=== PATIENT | male | born 1950 | race Caucasian/White ===

== ENCOUNTER 2016-06-20 19:28 | Emergency (ER) | payer OTHER ==
[2016-06-20 19:55] VITALS: TEMP 97.7
--- NOTE | 2016-06-20 20:43 | EDPHY ---
H & P Time Seen by Provider: 06/20/16 20:25 HPI/ROS: HPI Left shoulder injury. 66-year-old male by private vehicle. He reports that he was reaching and extending his left arm to get something off a shelf when he felt a sudden pop in his left shoulder. He complains of isolated pain to the left lateral shoulder. Denies history of fall or other acute traumatic event. ROS: Constitutional: No fever, no chills. No weakness. Musculoskeletal: No back pain. No neck pain. As above. Skin: No lacerations or abrasions. Neurological: No focal weakness or altered sensation. Past medical history: Right rotator cuff repair, insomnia, liver tumor ablation. Social history: Here by himself. Physical Exam: General Appearance: Alert, no distress. This patient is responding to questions appropriately and in full sentences. This patient appears well- hydrated and well-nourished. Eyes: Pupils equal and round no pallor or injection. No lid edema, erythema or injection. Left shoulder exam: He describes pain over the anterior lateral mid lateral and posterior lateral aspect of the shoulder. The axillary nerve distribution is intact. No tenderness on palpation over the AC joint. The glenoid humeral joint anatomically appears intact and without subluxation or dislocation. He is able to abduct and adduct the arm as well as flex and extend the arm. He has discomfort to the before mentioned areas with ranging. The left upper extremity is neurovascularly intact. There is noted soft tissue swelling, erythema or edema. No ecchymosis. Neurological: Motor sensory function is grossly intact. Cranial nerves are normal. Gait is normal. Skin: Warm and dry, no rashes. Musculoskeletal: Neck is supple and nontender. Extremities are symmetrical. All joints range without pain or impingement except noted. Psychiatric: No agitation. No depression. Database: EKG: Imaging: Left shoulder x-ray series: Negative for glenohumeral joint subluxation dislocation. No obvious fracture. Radiologist interpretation is a grade 2 AC joint sprain. However, the patient does not have any tenderness on palpation over the AC joint. Therefore this is unlikely an acute injury. Procedures: Emergency department course: Preliminary results of x-rays and probable diagnosis of shoulder sprain versus rotator cuff injury discussed with the patient. 9:45 p.m., Patient not in room, nursing staff reports patient out with his dog and will be back shortly. He had a sling in place. Likely diagnosis is a shoulder sprain. Possible rotator cuff injury. I will recommended follow-up with Orthopedics an MRI for further diagnostic evaluation. The patient never returned to his room. Discharge instructions authored and to be given the patient should he return. Differential Diagnosis: The differential diagnosis on this patient includes but is not limited to rotator cuff injury, left shoulder sprain. Fracture, subluxation, dislocation unlikely. This represents a partial list of diagnoses considered. These considerations are based on history, physical exam, past history, reassessment and diagnostic testing. Smoking Status: Former smoker Constitutional: Initial Vital Signs Temperature (C) 36.5 C 06/20/16 19:53 Heart Rate 72 06/20/16 19:53 Respiratory Rate 15 06/20/16 19:53 Blood Pressure 130/82 H 06/20/16 19:53 O2 Sat (%) 93 06/20/16 19:53 O2 Delivery Mode Room Air Allergies/Adverse Reactions: No Known Allergies Allergy (Unverified 12/08/12 20:40) Home Medications: Medication Instructions Recorded Amitriptyline HCl 5 mg PO 06/20/16 MDM/Departure - Depart Disposition: Home, Routine, Self-Care Clinical Impression: Injury of left shoulder Condition: Good Instructions: Shoulder Sprain (ED) Additional Instructions: Read and follow provided instructions. Follow-up with your orthopedic brace maker of the [facility] I have referred to you for re -evaluation of your left shoulder injury. Likely MRI needed for further diagnostic evaluation. Ibuprofen dosin mg every 6 hours with meals for the next 3 days only. Return to the emergency department for worsening pain, swelling, loss of sensation or weakness in your arm or other serious concerns. Stand Alone Forms: Work Limited Duty Referrals: FABRICIO FINN [Other] - As per Instructions Jarrod Le MD [Medical Doctor] - As per Instructions
[2016-06-20 21:57] VITALS: BP 128/71; PULSE 74; RESP 16; O2SAT 95
== END 2016-06-20 22:05 | disposition home or self-care (01) ==
DX: S49.92XA Unspecified injury of left shoulder and upper arm, initial encounter (principal); Z87.891 Personal history of nicotine dependence; X50.9XXA Other and unspecified overexertion or strenuous movements or postures, initial encounter; Y93.89 Activity, other specified

== ENCOUNTER 2018-09-08 09:24 | Emergency (ER) | payer OTHER ==
--- NOTE | 2018-09-08 10:17 | EDPHY ---
H & P Time Seen by Provider: 09/08/18 09:31 HPI/ROS: Chief complaint. Abdominal pain HPI. Patient is a 68-year-old male presents with multiple complaints. He complains of abdominal pain for 1 week. He complains of head pressure and jaw tightness. His hands feel cold. He has had chest pressure for 1 week. His symptoms for abdominal pain and chest pain are worse with lying down. He does not have any worsening symptoms with deep breathing or exertion. He has no shortness of breath. No fever cough. Pain is in the right upper quadrant for 1 week. He feels that he may be constipated. He has had no vomiting. He was seen at the [facility] on Saturday [address] and had CT of the liver with unknown results. Patient denies using any Tylenol or laxatives. ROS 10 systems were reviewed and negative with the exception of the elements mentioned in the history of present illness Past Medical/Surgical History: Rotator cuff repair, insomnia, liver tumor ablation Social History: Single, nonsmoker, no alcohol Smoking Status: Former smoker Physical Exam: General Appearance: Alert well-developed male mild distress vital signs are stable Eyes: Pupils equal and round no pallor or injection. ENT, Mouth: Mucous membranes are moist. Respiratory: There are no retractions, lungs are clear to auscultation. Cardiovascular: Regular rate and rhythm. Gastrointestinal: Abdomen soft with slight right upper quadrant tenderness. No masses. Normal bowel sounds Neurological: Awake and alert, sensory and motor exams grossly normal. Skin: Warm and dry, no rashes. Musculoskeletal: Neck is supple nontender. Extremities symmetrical, full range of motion. Psychiatric: Patient is oriented X 3, there is no agitation. Constitutional: Initial Vital Signs Temperature (C) 36.9 C 09/08/18 09:25 Heart Rate 80 09/08/18 09:25 Respiratory Rate 16 09/08/18 09:25 Blood Pressure 115/71 09/08/18 09:25 O2 Sat (%) 93 09/08/18 09:25 O2 Delivery Mode Room Air Allergies/Adverse Reactions: No Known Allergies Allergy (Unverified 12/08/12 20:40) Home Medications: Medication Instructions Recorded Amitriptyline HCl 5 mg PO 06/20/16 Medical Decision Making - Diagnostics EKG Interpretation: EKG interpreted by me shows normal sinus rhythm with normal interval and axis. QRS is normal there is no significant ST elevation or depression. No arrhythmia. The rate is 50 Imaging Results: Imaging Impressions Abdomen CT 09/08/18 10:24 Impression: 1. No acute findings in abdomen or pelvis. 2. Indeterminate hypodensity in the right hepatic lobe likely related to site of previous by microwave ablation. If previous studies can be made available, I' ll be happy to compare them. 3. Additional findings as above. Findings discussed with Dr. Toy Jones on 09/08/2018 at 11:36. Chest X-Ray 09/08/18 10:24 Impression: Negative for acute cardiopulmonary abnormality. Mild central bronchitis. CT abdomen pelvis with IV contrast shows no acute findings. Indeterminate hypodensity in the right hepatic lobe. Chest x-ray interpreted by me is normal Procedures: IV normal saline ED Course/Re-evaluation: Re-evaluation at 12:20 p.m.. Patient and I discussed imaging and lab results. We discussed treatment plan including criteria for return importance of follow- up and further evaluation. He expressed understanding and agreement Differential Diagnosis: Multiple complaints for 1 week with normal physical exam, normal vital signs, normal laboratory evaluation, normal imaging study of his abdomen. This may represent anxiety. - Data Points Laboratory Results: Laboratory Results 09/08/18 09:35 09/08/18 09:35 09/08/18 09/08/18 09/08/18 10:29 09:35 09:35 WBC 4.33 10^3/uL 10^3/uL (3.80-9.50) RBC 5.32 10^6/uL 10^6/uL (4.40-6.38) Hgb 15.5 g/dL g/dL (13.7-17.5) Hct 45.3 % % (40.0-51.0) MCV 85.2 fL fL (81.5-99.8) MCH 29.1 pg pg (27.9-34.1) MCHC 34.2 g/dL g/dL (32.4-36.7) RDW 12.8 % % (11.5-15.2) Plt Count 246 10^3/uL 10^3/uL (150-400) MPV 9.7 fL fL (8.7-11.7) Neut % (Auto) 58.2 % % (39.3-74.2) Lymph % (Auto) 26.8 % % (15.0-45.0) Lander % (Auto) 9.2 % % (4.5-13.0) Eos % (Auto) 4.4 % % (0.6-7.6) Baso % (Auto) 1.2 % % (0.3-1.7) Nucleat RBC Rel Count 0.0 % % (0.0-0.2) Absolute Neuts (auto) 2.52 10^3/uL 10^3/uL (1.70-6.50) Absolute Lymphs (auto) 1.16 10^3/uL 10^3/uL (1.00-3.00) Absolute Monos (auto) 0.40 10^3/uL 10^3/uL (0.30-0.80) Absolute Eos (auto) 0.19 10^3/uL 10^3/uL (0.03-0.40) Absolute Basos (auto) 0.05 10^3/uL 10^3/uL (0.02-0.10) Absolute Nucleated RBC 0.00 10^3/uL 10^3/uL (0-0.01) Immature Gran % 0.2 % % (0.0-1.1) Immature Gran # 0.01 10^3/uL 10^3/uL (0.00-0.10) Sodium 138 mEq/L mEq/L (135-145) Potassium 4.1 mEq/L mEq/L (3.5-5.2) Chloride 101 mEq/L mEq/L (97-110) Carbon Dioxide 28 mEq/l mEq/l (22-31) Anion Gap 9 mEq/L mEq/L (6-14) BUN 17 mg/dL mg/dL (7-23) Creatinine 0.9 mg/dL mg/dL (0.7-1.3) Estimated GFR > 60 Glucose 100 mg/dL mg/dL (70-100) Calcium 10.0 mg/dL mg/dL (8.5-10.4) Total Bilirubin 0.9 mg/dL mg/dL (0.1-1.4) Conjugated Bilirubin 0.1 mg/dL mg/dL (0.0-0.5) Unconjugated Bilirubin 0.8 mg/dL mg/dL (0.0-1.1) AST 30 IU/L IU/L (17-59) ALT 44 IU/L IU/L (21-72) Alkaline Phosphatase 62 IU/L IU/L (38-126) POC Troponin I 0.00 ng/mL ng/mL (0.00-0.08) Total Protein 7.9 g/dL g/dL (6.3-8.2) Albumin 4.6 g/dL g/dL (3.5-5.0) Lipase 81 IU/L IU/L (23-300) Medications Given: Discontinued Medications Sodium Chloride (Ns) 1,000 mls @ 0 mls/hr IV EDNOW ONE; Wide Open PRN Reason: Protocol Stop: 09/08/18 10:25 Last Admin: 09/08/18 10:30 Dose: 1,000 mls Point of Care Test Results: Chemistry 09/08/18 10:29 POC Troponin I 0.00 ng/mL ng/mL (0.00-0.08) Departure - Departure Disposition: Home, Routine, Self-Care Clinical Impression: Abdominal pain Condition: Good Instructions: Abdominal Pain (ED) Additional Instructions: May use Tylenol and ibuprofen for headache Drink plenty of fluids and stay hydrated Increased fruit and prune juice and may use laxatives or constipation return for worsening fever, vomiting, abdominal pain, chest pain, shortness of breath [facility]3 [facility] for continuing symptoms Referrals: NONE *PRIMARY CARE P,. [Primary Care Provider] - As per Instructions
[2018-09-08] MEDS ORDERED: NS 1,000 ML IV ONE (10:24)
[2018-09-08 10:28] LABS: PLATELET COUNT 246 10^3/uL (150-400)
[2018-09-08] MEDS ORDERED: IOPAMIDOL (ISOVUE-300) 100 ML BTL ONE (10:47)
[2018-09-08 12:39] VITALS: BP 117/82
--- NOTE | 2018-09-08 15:47 | CPEKG ---
Test Reason : OPEN Blood Pressure : / mmHG Vent. Rate : 058 BPM Atrial Rate : 057 BPM P-R Int : 198 ms QRS Dur : 084 ms QT Int : 406 ms P-R-T Axes : 015 -01 034 degrees QTc Int : 399 ms Sinus rhythm Confirmed by Michelle Jones ([id number]) on 09/08/2018 3:46:37 PM Referred By: MICHELLE JONES Confirmed By:Michelle Jones
== END 2018-09-08 12:39 | disposition home or self-care (01) ==
DX: R10.11 Right upper quadrant pain (principal); E86.9 Volume depletion, unspecified
CPT/HCPCS: 84484-ER; Q9967